=== PATIENT | male | born 1990 | race Two or more races ===

== ENCOUNTER 2017-07-01 03:51 | Emergency (ER) | payer OTHER ==
[~2017-07-01] VITALS: Ht 170.2 cm; Wt 72.6 kg
[2017-07-01 04:10] VITALS: BP 154/101
--- NOTE | 2017-07-01 04:17 | Emergency Room Report ---
History of Present Illness General Chief Complaint: General Complaint Source: Patient Present Illness HPI The patient presents with paranoid ideation. He has been using heroin and speed the last time was 3 days ago. He has a psychiatric history and it has been 5 years since he took Zyprexa. At that time he was admitted to [facility]. He denies suicidal or homicidal ideation at this time. The patient is also complaining about coughing up blood. He he doesn't smoke cigarettes. He's been doing of amphetamine in his room. He states it's made him kind of crazy and believes that people are after him. He is embarrassed as he has not bathed or showered for several days. He states he wants to be able to return to work but was unable due to the drug use. Denies fever, chills, NVD, chest pain, abdominal pain, dysuria, discharge, rashes, headache, change in vision. Allergies: Coded Allergies: No Known Allergies (Unverified , 07/01/17) Patient History Past Medical History: see triage record, psych hx Social History: Reports: drug use; Denies: smoking, alcohol use Social History Narrative lives with family Reviewed Nursing Documentation: PMH: Agreed; PSxH: Agreed Nursing Documentation-PMH Past Medical History: No Stated History Review of Systems All Other Systems: negative except mentioned in HPI Physical Exam Vital Signs Date Time Temp Pulse Resp B/P (MAP) Pulse Ox O2 Delivery O2 Flow Rate FiO2 07/01/17 03:49 98.1 86 18 154/101 98 Room Air 98.1 Sp02 EP Interpretation: reviewed, normal General Appearance: well appearing, no apparent distress, GCS 15 Head: normocephalic Eyes: bilateral eye PERRL, bilateral eye Scleral Injection ENT: moist mucus membranes Neck: supple Respiratory: lungs clear, normal breath sounds Cardiovascular #1: regular rate, rhythm Cardiovascular #2: 2+ radial (R) Gastrointestinal: normal inspection, normal bowel sounds, non tender, no mass, non-distended Musculoskeletal: back normal, gait/station normal, normal range of motion Neurologic: alert, oriented x3, grossly normal Psychiatric: no suicidal/homicidal ideation, anxious, other - slightly delusional Skin: normal inspection, warm/dry Medical Decision Making Diagnostic Impression: Primary Impression: Substance abuse Additional Impressions: Schizoaffective disorder Qualified Codes: F25.9 - Schizoaffective disorder, unspecified Paranoid ideation ER Course Patient presents with paranoid delusions after admitting to drug use. Differential includes toxic psychosis, exacerbation of schizophrenia, occult infection, electrolyte imbalance amongst others. The patient will be evaluated with EKG, chest x-ray (as c/o cough blood) and labs. The patient is not suicidal at this time. He agrees to take Zyprexa. EKG without injury. Chest x-ray no infiltrates. Labs remarkable for positive THC and minimally elevated CK. The patient is improved here with Zyprexa. He feels comfortable about going home. He is no longer paranoid and denies suicidal or homicidal ideation. Patient stable for outpatient observation and treatment. Laboratory Tests Test 07/01/17 04:20 07/01/17 04:32 Urine Color Pale yellow Urine Appearance Clear Urine pH 5 (4.5-8.0) Urine Specific [place] 1.020 (1.005-1.035) Urine Protein Negative (NEGATIVE) Urine Glucose (UA) Negative (NEGATIVE) Urine Ketones Negative (NEGATIVE) Urine Occult Blood 3+ (NEGATIVE) H Urine Nitrite Negative (NEGATIVE) Urine Bilirubin Negative (NEGATIVE) Urine Urobilinogen Normal MG/DL (0.0-1.0) Urine Leukocyte Esterase Negative (NEGATIVE) Urine RBC 2-4 /HPF (0 - 0) H Urine WBC 0-2 /HPF (0 - 0) Urine Squamous Epithelial Cells Few /LPF (NONE/OCC) Urine Bacteria None /HPF (NONE) Urine Opiates Screen Negative (NEGATIVE) Urine Barbiturates Screen Negative (NEGATIVE) Phencyclidine (PCP) Screen Negative (NEGATIVE) Urine Amphetamines Screen Negative (NEGATIVE) Urine Benzodiazepines Screen Negative (NEGATIVE) Urine Cocaine Screen Negative (NEGATIVE) Urine Marijuana (THC) Screen Positive (NEGATIVE) H White Blood Count 4.3 K/UL (4.8-10.8) L Red Blood Count 5.04 M/UL (4.70-6.10) Hemoglobin 16.9 G/DL (14.2-18.0) Hematocrit 46.2 % (42.0-52.0) Mean Corpuscular Volume 92 FL (80-99) Mean Corpuscular Hemoglobin 33.5 PG (27.0-31.0) H Mean Corpuscular Hemoglobin Concent 36.5 G/DL (32.0-36.0) H Red Cell Distribution Width 12.1 % (11.6-14.8) Platelet Count 250 K/UL (150-450) Mean Platelet Volume 7.5 FL (6.5-10.1) Neutrophils (%) (Auto) 65.6 % (45.0-75.0) Lymphocytes (%) (Auto) 25.1 % (20.0-45.0) Monocytes (%) (Auto) 7.8 % (1.0-10.0) Eosinophils (%) (Auto) 0.5 % (0.0-3.0) Basophils (%) (Auto) 1.0 % (0.0-2.0) Sodium Level 139 MMOL/L (136-145) Potassium Level 3.8 MMOL/L (3.5-5.1) Chloride Level 101 MMOL/L (98-107) Carbon Dioxide Level 27 MMOL/L (21-32) Anion Gap 11 mmol/L (5-15) Blood Urea Nitrogen 6 mg/dL (7-18) L Creatinine 0.9 MG/DL (0.55-1.30) Estimate Glomerular Filtration Rate > 60 mL/min (>60) Glucose Level 110 MG/DL (74-106) H Calcium Level 9.1 MG/DL (8.5-10.1) Total Bilirubin 1.2 MG/DL (0.2-1.0) H Direct Bilirubin 0.2 MG/DL (0.0-0.3) Aspartate Amino Transferase (AST) 47 U/L (15-37) H Alanine Aminotransferase (ALT) 48 U/L (12-78) Alkaline Phosphatase 98 U/L (46-116) Total Creatine Kinase 478 U/L (26-308) H Total Protein 8.4 G/DL (6.4-8.2) H Albumin 4.1 G/DL (3.4-5.0) Globulin 4.3 g/dL Albumin/Globulin Ratio 1.0 (1.0-2.7) Salicylates Level < 0.2 ug/mL (2.8-20) L Acetaminophen Level < 2 MCG/ML (10-30) L Serum Alcohol < 3 mg/dL EKG Diagnostic Results Rate: normal Rhythm: NSR ST Segments: no acute changes Rhythm Strip Diag. Results EP Interpretation: yes Rhythm: NSR, no PVC's, no ectopy Chest X-Ray Diagnostic Results Chest X-Ray Diagnostic Results : Chest X-Ray Ordered: Yes # of Views/Limited/Complete: 1 View Indication: Other EP Interpretation: Yes Interpretation: no consolidation, no effusion, no pneumothorax, no acute cardiopulmonary disease Impression: No acute disease Electronically Signed by: Electronically signed by Redd Sinha MD Last Vital Signs Date Time Temp Pulse Resp B/P (MAP) Pulse Ox O2 Delivery O2 Flow Rate FiO2 07/01/17 05:50 98.1 80 18 142/93 99 Room Air 98.1 Status: improved Disposition: HOME, SELF-CARE Condition: Improved Scripts Olanzapine* (ZYPREXA*) 2.5 Mg Tablet 2.5 MG ORAL DAILY, #14 TAB 1 Refill Prov: Redd Sinha M.D. 07/01/17 Referrals: [facility],REFERRING (PCP) Redd Sinha M.D. July 01, 2017 04:17
[2017-07-01 04:46] LABS: EOSINOPHILS % (AUTO) 0.5 % (0.0-3.0); HEMATOCRIT 46.2 % (42.0-52.0); HEMOGLOBIN 16.9 G/DL (14.2-18.0); LYMPHOCYTES % (AUTO) 25.1 % (20.0-45.0); MEAN CORPUSCULAR VOLUME 92 FL (80-99); MONOCYTES % (AUTO) 7.8 % (1.0-10.0); NEUTROPHILS % (AUTO) 65.6 % (45.0-75.0); PLATELET COUNT 250 K/UL (150-450); RED BLOOD COUNT 5.04 M/UL (4.70-6.10); RED CELL DISTRIBUTION WIDTH 12.1 % (11.6-14.8); WHITE BLOOD COUNT 4.3 K/UL (4.8-10.8)
[2017-07-01 04:54] LABS: APPEARANCE,URINE CLEAR; BILIRUBIN, URINE NEGATIVE (NEGATIVE); COLOR,URINE PALE YELLOW; GLUCOSE, URINE (UA) NEGATIVE (NEGATIVE); KETONES,URINE NEGATIVE (NEGATIVE); LEUKOCYTE ESTERASE ,URINE NEGATIVE (NEGATIVE); NITRITE,URINE NEGATIVE (NEGATIVE); PH,URINE 5 (4.5-8.0); PROTEIN,URINE NEGATIVE (NEGATIVE); UROBILINOGEN,URINE NORMAL MG/DL (0.0-1.0)
[2017-07-01 04:57] LABS: ANION GAP 11 mmol/L (5-15); BLOOD UREA NITROGEN 6 mg/dL (7-18); CALCIUM 9.1 MG/DL (8.5-10.1); CARBON DIOXIDE 27 MMOL/L (21-32); CHLORIDE 101 MMOL/L (98-107); CREATININE 0.9 MG/DL (0.55-1.30); POTASSIUM 3.8 MMOL/L (3.5-5.1); SODIUM 139 MMOL/L (136-145)
[2017-07-01 05:11] LABS: ALANINE AMINOTRANSFERASE 48 U/L (12-78); ALBUMIN 4.1 G/DL (3.4-5.0); ALKALINE PHOSPHATASE 98 U/L (46-116); ASPARTATE AMINO TRANSFERASE 47 U/L (15-37); BILIRUBIN,TOTAL 1.2 MG/DL (0.2-1.0); CREATINE KINASE 478 U/L (26-308)
[2017-07-01 05:16] LABS: BILIRUBIN,DIRECT 0.2 MG/DL (0.0-0.3)
[2017-07-01] MEDS ORDERED: ZYPREXA2.5 MG ORAL (05:43)
[2017-07-01 05:50] VITALS: BP 142/93
--- NOTE | 2017-07-01 09:51 | Diagnostic Imaging Report ---
Indication: Cough Comparison: None A single view chest radiograph was obtained. Findings: Cardiomediastinal appearance is within normal limits for age. Pulmonary vascularity is appropriate. The diaphragmatic contour is smooth and costophrenic angles are sharp. No pleural effusions are identified. The bones are unremarkable. Impression: No acute findings
--- NOTE | 2017-07-01 16:41 | Cardiology Report ---
APPROVED REPORT EKG Measurement Heart [id number] MI [id number] Sinus rhythm with sinus arrhythmia with short MI Otherwise normal ECG
== END 2017-07-01 05:50 | disposition home or self-care (01) ==
LOC: EDBD 03:51 → EMR 04:01
DX: F19.10 Other psychoactive substance abuse, uncomplicated (principal); F25.9 Schizoaffective disorder, unspecified; R05 Cough
CPT/HCPCS: 36415; 71045; 80053; 80307; 80329; 81003; 82248; 82550; 85025; 93005; 96374; 96375; 99284

== ENCOUNTER 2019-04-03 21:41 | Emergency (ER) | payer MEDICAID ==
[~2019-04-03] VITALS: Ht 172.7 cm; Wt 81.6 kg
[~2019-04-03 21:41] MED LIST: AUGMENTIN 875-1 EAC1 ORAL; BACITRACIN15 GM TOPIC; IBUPROFEN600 MG ORAL; ZYPREXA2.5 MG ORAL
[2019-04-03] MEDS ORDERED: Neosporin Oint Ud Pkt TOPIC ONE (21:45)
[2019-04-03] MEDS ORDERED: IBUPROFEN600 MG ORAL (21:46)
--- NOTE | 2019-04-03 21:46 | Emergency Room Report ---
History of Present Illness General Chief Complaint: To Be Triaged Source: Patient Present Illness HPI This a 28-year-old male who was bit by dog in his left hand about 20 days ago. He came back here for recheck and suture removal. No redness. No fever chills but no drainage. He said it hurts when he works but otherwise no pain when he is at home. Denies any other complaint. Allergies: Coded Allergies: No Known Allergies (Unverified , 07/01/17) Patient History Past Medical History: see triage record, old chart reviewed Past Surgical History: none Pertinent Family History: none Social History: Denies: smoking Immunizations: UTD Reviewed Nursing Documentation: PMH: Agreed; PSxH: Agreed Review of Systems Eye: Denies: eye pain, blurred vision ENT: Denies: ear pain, nose congestion, throat swelling Respiratory: Denies: cough, shortness of breath Cardiovascular: Denies: chest pain, palpitations Gastrointestinal: Denies: abdominal pain, diarrhea, nausea, vomiting Musculoskeletal: Denies: back pain, joint pain Skin: Denies: rash Neurological: Denies: headache, numbness Endocrine: Denies: increased thirst, increased urine Hematologic/Lymphatic: Denies: easy bruising All Other Systems: negative except mentioned in HPI Physical Exam Vitals normal Sp02 EP Interpretation: reviewed, normal General Appearance: well appearing, no apparent distress, alert Head: normocephalic, atraumatic Eyes: bilateral eye PERRL, bilateral eye EOMI ENT: hearing grossly normal, normal pharynx Neck: full range of motion, supple, no meningismus Respiratory: chest non-tender, lungs clear, normal breath sounds Cardiovascular #1: regular rate, rhythm, no murmur Gastrointestinal: normal bowel sounds, non tender, no mass, no organomegaly, no bruit, non-distended Musculoskeletal: back normal, normal range of motion, gait/station normal, other - Left hand: There is a semilunar laceration that is healed with scabbing and eschar. No drainage. Psychiatric: mood/affect normal Procedures Additional Procedure Procedure Narrative Procedure: Suture removal Indication: Laceration repair Description: I cleaned the area and remove the sutures without any difficulty. Medical Decision Making Diagnostic Impression: Primary Impression: Encounter for removal of sutures ER Course For suture removal. Wound looks clean. Healing slowly. Will discharge home. No evidence of infection. Status: improved Disposition: HOME, SELF-CARE Condition: Stable Scripts Ibuprofen* (MOTRIN*) 600 Mg Tablet 600 MG ORAL THREE TIMES A DAY, #30 TAB 0 Refills Prov: Rah Cuello MD 04/03/19 Additional Instructions: Follow-up with your doctor in 7 days. Return if symptoms worsen. Rah Cuello MD Apr 03, 2019 21:46
--- NOTE | 2019-04-03 21:59 | NUR ---
ED Nurse Note: Patient walked in from home d/t left hand wound suture removal. Pt aao x 4 and ambulatory. No complaints of pain. No acute distress noted upon assessment.
[2019-04-03 22:00] VITALS: BP 132/85
[2019-04-03 22:05] VITALS: BP 130/82
--- NOTE | 2019-04-03 22:05 | NUR ---
ER DISCHARGE NOTE: Patient is cleared to be discharged per ERMD, pt is aox4, on room air, with stable vital signs. pt was given dc and prescription instructions, pt was able to verbalize understanding, pt id band removed. pt is able to ambulate with steady gait. pt took all belongings. pt stable upon discharge.
== END 2019-04-03 22:10 | disposition home or self-care (01) ==
LOC: EMR 22:10
DX: S61.412A Laceration without foreign body of left hand, initial encounter (principal); W54.0XXA Bitten by dog, initial encounter; Y92.9 Unspecified place or not applicable
CPT/HCPCS: 99282